=== PATIENT | female | born 1945 | race Caucasian/White ===

== ENCOUNTER 2017-04-09 16:11 | Emergency (ER) | payer OTHER ==
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
[2017-04-09] MEDS ORDERED: ORPHENADRINE CITRATE 30 MG/ML AMP IM ONE (17:36)
[2017-04-09] MEDS ORDERED: HYDROcodone 10MG/APAP 325MG 1 EA TAB PO ONE (17:37)
--- NOTE | 2017-04-09 18:23 | CT ---
EXAM DESCRIPTION: CT lumbar spine CLINICAL HISTORY: pain COMPARISON: None Available. TECHNIQUE: Contiguous axial images of lumbar spine were obtained followed by reconstruction images. This exam was performed according to our departmental dose-optimization program, which includes automated exposure control, adjustment of the mA and/or kV according to patient size and/or use of iterative reconstruction technique. FINDINGS: There is an acute fracture involving the superior endplate and anterior border of the L1 vertebral body. There is no retropulsion. No other fracture is visualized. There are degenerative changes of the lower lumbar spine. There is intervertebral disc space narrowing at all levels less pronounced at L4/L5. There is atherosclerosis. There is a nonobstructive stone within the left kidney. There is a hiatal hernia. IMPRESSION: Acute compression fracture involving the superior endplate and anterior aspect of the L1 vertebral body. There is no retropulsion. Electronically signed by: Andrea Peres MD 04/09/2017 6:22 PM CDT
[2017-04-09] MEDS ORDERED: HYDROCOD/APAP 10/325 (ER DISP) # 3 tablets PO ONE (18:56)
[2017-04-09] MEDS ORDERED: CYCLOBENZAPRINE TAB (ER DISP) 10 MG TAB PO ONE (18:56)
[2017-04-09 19:37] VITALS: BP 122/82; TEMP 98; O2SAT 98
== END 2017-04-09 19:25 | disposition home or self-care (01) ==
LOC: ER 16:11
DX: S32.010A Wedge compression fracture of first lumbar vertebra, initial encounter for closed fracture (principal); I10 Essential (primary) hypertension; K21.9 Gastro-esophageal reflux disease without esophagitis; Z88.6 Allergy status to analgesic agent; X58.XXXA Exposure to other specified factors, initial encounter; Y92.828 Other wilderness area as the place of occurrence of the external cause
CPT/HCPCS: 72131; J2360